=== PATIENT | male | born 1960 | race Caucasian/White ===

== ENCOUNTER 2023-10-03 05:31 | Emergency (ER) | payer OTHER, SELFPAY ==
[2023-10-03 05:31] VITALS: BMI 31.2
[2023-10-03 05:33] VITALS: BP 206/130
[2023-10-03 05:42] VITALS: BP 162/94
[2023-10-03 06:00] VITALS: BP 154/93
--- NOTE | 2023-10-03 06:27 | ED.GENMED ---
History of Present Illness
General
Chief Complaint: Musculo-Skeletal Complaint
Source: patient
Time Seen by Provider: 10/03/23 06:17
History of Present Illness
History of Present Illness:
62-year-old male presents to the emergency room complaining of right lower abdominal pain. Pain began Sunday. Pain seems worse with movement. At times it seems to go away and other times it is more significant. He does have some occasional
nausea. He denies any diarrhea. Pain is worse with movement and attempted to have a bowel movement. No fever or chills. No previous abdominal surgery.
Past History
Past History
ED Past Medical History: HTN (Takes lisinopril) and Hypercholesterolemia (Takes Atorvastatin)
Social History
Living: with family
Phy Exam
Physical Exam
Physical Exam:
General: Awake, Alert, Oriented X3. No acute distress.
Vitals: unremarkable
Head: Atraumatic
Eyes: Pupils equal, EOMI
Throat: Airway intact, no exudates
Neck: Trachea midline
Lungs: Clear and equal b/l
Heart: Regular rate, no murmurs
Abd: Soft, mild tenderness to palpation right lower quadrant, no pulsatile mass
Neuro: Nonfocal
Skin: Warm, dry, no rash
Extremities: pulses equal b/l, no edema
Course
Orders/Labs/Results
Orders:
Orders
10/03/23 06:26
CT Abd/Pel (IV only)-DH only Urgent
Comment:
Reason For Exam: right lower abd pain
Ketorolac [Toradol] 15 mg IV NOW STA
10/03/23 06:43
Basic Metabolic Panel Urgent
Complete Blood Count/With Diff Urgent
Urinalysis Reflex To Culture Urgent
Date Specimen was Collected: 10/03/23
Time Specimen was Collected: 06:33
Urine Microscopic Reflex Cult Urgent
Abnormal Lab Results
08/21/24
06:43
MPV 10.6 H fL
(7.4-10.4)
Glucose 133 H mg/dl
(70-99)
Leukocyte Esterase Rfl Trace A
(Negative)
10/03/23 06:43
10/03/23 06:43
Vital Signs
Initial and Last Documented VS:
Initial Vital Signs
Temp Pulse Resp BP Pulse Ox
98.8 F 76 24 206/130 96
10/03/23 05:33 10/03/23 05:33 10/03/23 05:33 10/03/23 05:33 10/03/23 05:33
Last Documented Vital Signs
Temp Pulse Resp BP Pulse Ox
98.7 F 65 18 144/81 95
10/03/23 10:08 10/03/23 10:08 10/03/23 10:08 10/03/23 10:08 10/03/23 10:08
MDM/Problems Addressed
Differential Diagnosis Includes:
Abdominal muscle strain, appendectomy, diverticulitis
MDM/Problems Addressed:
Physical exam is benign. My suspicion is this is likely a abdominal wall muscle strain. However we will obtain labs and imaging to be completed. CT does not show any evidence of an internal derangement. Labs are unremarkable.
*Radiology
Radiology exam reviewed: radiology read reviewed
*Pulse Oximetry
Patient hypoxic: no
*Critical Care Note
Total Time (30-74mins, 75-104mins- exclusive of procedures): Not Applicable
ED Attending Note
-
Portions of this chart may have been created with voice recognition software.� Occasional wrong word or��sound alike� substitutions may have occurred due to the inherent limitations of voice recognition software.
Discharge Plan
Departure
Patient Disposition: Home (Routine Discharge)
Date of Disposition: 10/03/23
Time of Disposition: 09:33
Patient with high blood pressure during this ER visit?: Yes
Condition: Good
Discharge Problem:
Strain of abdominal wall
Instructions: Abdominal Muscle Strain ED
Prescriptions:
No Action
atorvastatin 10 MG tablet
10 mg PO DAILY
lisinopril 10 MG tablet
10 mg PO DAILY
ibuprofen 200 MG tablet
600 mg PO PRN PRN (Reason: pain)
levothyroxine 137 mcg Tablet
137 mcg PO DAILY
Referrals:
Krysta Aldridge CRNP [Family Provider] -
Interventions
Interventions:
*Risk Screen - Suicide Last Done: 10/03/23 05:33
*General Assessment Last Done: 10/03/23 05:43
*Neglect/Abuse Screening Last Done: 10/03/23 05:33
ED- Fall Risk Assessment Last Done: 10/03/23 10:08
*ED COVID-19 Vaccine History Last Done: 10/03/23 05:43
*Nursing Disposition Last Done: 10/03/23 10:08
ED-Musculoskeletal Assessment Last Done: 10/03/23 05:47
Discharge Date and Time
Discharge Date/Time: 10/03/23 10:09
Print Language: UKRAINIAN
[2023-10-03] MEDS: TORADOL 15 MG IV (06:47)
[2023-10-03 07:00] VITALS: BP 142/96
[2023-10-03 07:14] LABS: Urine Albumin Negative (Neg - Trace); Urine Bilirubin Negative (Negative); Urine Character Clear (Clear); Urine Color Yellow; Urine Glucose Negative (Negative); Urine Ketone Negative (Negative); Urine Leukocyte Trace (Negative); Urine Nitrite Negative (Negative); Urine Occult Blood Negative (Negative); Urine Urobilinogen 1+ (Neg - 1+)
[2023-10-03 07:17] LABS: % Basophils 0.5 % (0-2); % Immature Granulocytes 0.2 % (0-0.5); % Lymphocytes 23.5 % (20.5-51.1); % Monocytes 8.3 % (1.7-9.3); % Neutrophils 66.5 % (42.2-75.2); Absolute Eosinophils 0.1 10^3/uL (0-0.7); Absolute Lymphocytes 1.4 10^3/uL (1.2-3.4); Absolute Monocytes 0.5 10^3/uL (0.1-0.6); Absolute Neutrophils 3.9 10^3/uL (1.4-6.5); Hematocrit 42.6 % (39.0-52.0); Hemoglobin 14.5 g/dL (13.0-18.0); Mean Corpuscular Hgb 30.3 pg (27.0-31.0); Mean Corpuscular Volume 88.9 fL (80.0-94.0); Mean Platelet Volume 10.6 fL (7.4-10.4); Nucleated Red Blood Cells % 0 % (-); Platelet Count 211 10^3/uL (130-400); Red Blood Cell Count 4.79 10^6/uL (4.70-6.10); White Blood Cell Count 5.9 10^3/uL (4.8-10.8)
[2023-10-03 07:28] LABS: Blood Urea Nitrogen 13 mg/dl (9-20); Calcium 9.5 mg/dl (8.4-10.2); Carbon Dioxide 26 mmol/L (22-30); Chloride 102 mmol/L (98-107); Estimated Creatinine Clearance > 125 ml/min; Glucose 133 mg/dl (70-99); Potassium 4.5 mmol/L (3.5-5.1); Sodium 138 mmol/L (135-145); eGFR > 60.00
[2023-10-03 08:18] LABS: Urine Mucus Many
[2023-10-03 08:19] LABS: Urine Amorphous Seen; Urine Squamous Cell 0-2 /LPF (Few)
[2023-10-03 08:20] LABS: Urine Red Blood Cell 0-2 /HPF (0-2); Urine White Cell 0-2 /HPF (0-5)
[2023-10-03 09:39] VITALS: BP 144/81
[2023-10-03 10:08] VITALS: BP 144/81
== END 2023-10-03 10:09 | disposition home or self-care (01) ==
LOC: EMR 05:31
PROVIDERS: EMERGENCY PHYSICIAN Emergency Medicine; FAMILY PHYSICIAN Nurse Practitioner Adult Health
DX: S39.011A Strain of muscle, fascia and tendon of abdomen, initial encounter (principal); R11.0 Nausea; X58.XXXA Exposure to other specified factors, initial encounter; R10.31 Right lower quadrant pain; E78.00 Pure hypercholesterolemia, unspecified; I10 Essential (primary) hypertension; Z79.899 Other long term (current) drug therapy
CPT/HCPCS: 99285; 96374; 74177; 80048; 81003; 81015; 85025; Q9967

== ENCOUNTER 2024-05-12 06:16 | Day surgery (SDC) | payer BC, SELFPAY | END 2024-05-12 08:36 | disposition home or self-care (01) | LOC: GI 06:16 | PROVIDERS: ATTENDING PHYSICIAN Internal Medicine Gastroenterology | DX: Z12.11 Encounter for screening for malignant neoplasm of colon (principal); Z86.0100 Personal history of colon polyps, unspecified; K57.30 Diverticulosis of large intestine without perforation or abscess without bleeding; K64.8 Other hemorrhoids | CPT/HCPCS: G0105 ==

== ENCOUNTER → 2024-07-01 17:13 | Outpatient (REF) | payer BC, SELFPAY | LOC: RAD 17:13 | PROVIDERS: ATTENDING PHYSICIAN Nurse Practitioner Adult Health | DX: Z87.891 Personal history of nicotine dependence (principal); F17.210 Nicotine dependence, cigarettes, uncomplicated; R06.2 Wheezing | CPT/HCPCS: 71260; Q9967 ==

== ENCOUNTER → 2024-08-21 06:43 | Outpatient (REF) | payer BC, SELFPAY | LOC: RSP 06:43 | PROVIDERS: ATTENDING PHYSICIAN Nurse Practitioner Adult Health | DX: R05.3 Chronic cough (principal); Z87.891 Personal history of nicotine dependence | CPT/HCPCS: 88738; 94010; 94727; 94729 ==